=== PATIENT | female | born 1990 | race African-American/Black ===

== ENCOUNTER 2017-04-19 23:55 | Emergency (ER) | payer MEDICAID ==
[~2017-04-19] VITALS: Ht 154.9 cm; Wt 57.0 kg
[2017-04-20 00:30] VITALS: BP 110/59
[2017-04-20] MEDS ORDERED: ACETAMINOPHEN 325MG TABLET PO ONE (00:45)
[2017-04-20 01:11] LABS: BASOPHILS % 0.7 % (0.0-2.0); EOSINOPHILS % 2.8 % (0.0-5.0); HEMATOCRIT. 35.2 % (36.0-48.0); HEMOGLOBIN. 11.5 g/dL (12.0-16.0); LYMPHOCYTES % 29.3 % (20.0-50.0); MEAN CORPUSCULAR HEMOGLOBIN 25.1 pg (28.0-32.0); MEAN CORPUSCULAR VOLUME 76.8 fL (81.0-99.0); MEAN PLATELET VOLUME 8.7 fl (7.4-10.4); MONOCYTES % 9.7 % (2.0-8.0); NEUTROPHILS % 57.5 % (40.0-76.0); PLATELET 308 x1000/uL (130-400); RED BLOOD CELL COUNT 4.59 mill/uL (4.2-5.4); RED CELL DISTRIBUTION WIDTH 16.4 % (11.6-14.6)
[2017-04-20 01:14] LABS: CLARITY URINE CLOUDY (CLEAR); COLOR URINE YELLOW (YELLOW); GLUCOSE URINE NEGATIVE (NEGATIVE); KETONES URINE TRACE (NEGATIVE); LEUKOCYTE ESTERASE URINE 2+ (NEGATIVE); NITRITE URINE NEGATIVE (NEGATIVE); OCCULT BLOOD URINE 2+ (NEGATIVE); PH URINE 7.5 (4.5-8.0); PROTEIN URINE TRACE (NEGATIVE); SPECIFIC GRAVITY URINE 1.025 (1.005-1.030)
[2017-04-20 01:17] LABS: CHLORIDE 106 mEq/L (98-107)
[2017-04-20 01:23] LABS: HCG SCREEN NEGATIVE
[2017-04-20 01:29] LABS: CARBON DIOXIDE 24 mEq/L (21-32)
== END 2017-04-20 02:47 | disposition home or self-care (01) ==
LOC: ER 23:55
DX: N39.0 Urinary tract infection, site not specified (principal); R53.1 Weakness; N89.8 Other specified noninflammatory disorders of vagina; J45.909 Unspecified asthma, uncomplicated
CPT/HCPCS: 36415; 80048; 81001; 84703; 85025; 99284

== ENCOUNTER 2017-05-19 18:22 | Emergency (ER) | payer MEDICAID ==
[~2017-05-19] VITALS: Ht 154.9 cm; Wt 57.0 kg
[2017-05-19] MEDS ORDERED: HYDROCODONE/ACETAMINOPHEN 5/325MG TABLET PO ONE (20:30)
[2017-05-19 21:11] LABS: HCG SCREEN NEGATIVE
[2017-05-19 21:30] VITALS: BP 110/72
== END 2017-05-20 00:14 | disposition home or self-care (01) ==
LOC: ER 20:50
DX: S00.10XA Contusion of unspecified eyelid and periocular area, initial encounter (principal); S20.319A Abrasion of unspecified front wall of thorax, initial encounter; R51 Headache; J45.909 Unspecified asthma, uncomplicated; Y04.0XXA Assault by unarmed brawl or fight, initial encounter; Y93.89 Activity, other specified; Y92.89 Other specified places as the place of occurrence of the external cause; Y99.8 Other external cause status
CPT/HCPCS: 70450; 70486; 84703; 99285

== ENCOUNTER 2017-05-21 11:18 | Emergency (ER) | payer MEDICAID ==
[~2017-05-21] VITALS: Ht 154.9 cm; Wt 57.0 kg
[2017-05-21] MEDS ORDERED: KETOROLAC 60MG/2ML VIAL IM ONE (14:00)
[2017-05-21 14:13] VITALS: BP 123/68
== END 2017-05-21 14:14 | disposition home or self-care (01) ==
LOC: ER 13:28
DX: S05.11XA Contusion of eyeball and orbital tissues, right eye, initial encounter (principal); J45.909 Unspecified asthma, uncomplicated; M79.652 Pain in left thigh; M79.651 Pain in right thigh; Z98.890 Other specified postprocedural states; Y04.0XXA Assault by unarmed brawl or fight, initial encounter; Y93.89 Activity, other specified; Y92.018 Other place in single-family (private) house as the place of occurrence of the external cause
CPT/HCPCS: 96372; 99283; J1885

== ENCOUNTER 2017-06-02 09:07 | Emergency (ER) | payer MEDICAID ==
[~2017-06-02] VITALS: Ht 157.5 cm; Wt 55.0 kg
[2017-06-02] MEDS ORDERED: SODIUM CHLORIDE 0.9% 1,000 ML IV ONE (10:27)
[2017-06-02 10:53] LABS: HEMATOCRIT. 30.2 % (36.0-48.0); HEMOGLOBIN. 10.1 g/dL (12.0-16.0); MEAN CORPUSCULAR HEMOGLOBIN 24.7 pg (28.0-32.0); MEAN CORPUSCULAR VOLUME 73.7 fL (81.0-99.0); MEAN PLATELET VOLUME 8.4 fl (7.4-10.4); PLATELET 260 x1000/uL (130-400); RED CELL DISTRIBUTION WIDTH 16.2 % (11.6-14.6)
[2017-06-02 11:08] LABS: CARBON DIOXIDE 27 mEq/L (21-32); CHLORIDE 98 mEq/L (98-107)
[2017-06-02 11:18] LABS: HCG SCREEN NEGATIVE
[2017-06-02 11:24] LABS: CLARITY URINE CLOUDY (CLEAR); COLOR URINE YELLOW (YELLOW); GLUCOSE URINE NEGATIVE (NEGATIVE); KETONES URINE TRACE (NEGATIVE); LEUKOCYTE ESTERASE URINE 3+ (NEGATIVE); NITRITE URINE POSITIVE (NEGATIVE); OCCULT BLOOD URINE 2+ (NEGATIVE); PROTEIN URINE 1+ (NEGATIVE); SPECIFIC GRAVITY URINE 1.013 (1.005-1.030)
[2017-06-02 11:44] LABS: PLATELET ESTIMATE NORMAL
[2017-06-02] MEDS ORDERED: KETOROLAC 30MG/ML VIAL IV ONE (11:45)
[2017-06-02] MEDS ORDERED: CEFTRIAXONE SODIUM 1 G/VIAL IM ONE (13:45)
[2017-06-02] MEDS ORDERED: ACETAMINOPHEN 325MG TABLET PO ONE (14:00)
[2017-06-02] MEDS ORDERED: CEFTRIAXONE 1 G PREMIX 50 ML IV ONE (14:15)
[2017-06-02 15:59] VITALS: BP 130/70
== END 2017-06-02 16:08 | disposition home or self-care (01) ==
LOC: ER 10:31
DX: N39.0 Urinary tract infection, site not specified (principal); E86.0 Dehydration; J45.909 Unspecified asthma, uncomplicated; D64.9 Anemia, unspecified; Z98.890 Other specified postprocedural states
CPT/HCPCS: 36415; 74176; 76705; 80053; 81001; 83690; 84703; 85025; 96361; 96365; 96375; 99285; J0696; J1885; J7030